=== PATIENT | male | born 1990 | race Caucasian/White ===

== ENCOUNTER 2021-04-19 09:38 | Emergency (ER) | payer SELFPAY ==
[~2021-04-19] VITALS: Ht 182.9 cm; Wt 93.9 kg
[2021-04-19] MEDS ORDERED: ONDANSETRON 2MG/ML, 2ML ONE (10:14)
[2021-04-19] MEDS ORDERED: MORPHINE SULFATE 4 MG/ML, 1ML ONE (10:14)
[2021-04-19] MEDS ORDERED: ONDANSETRON 2MG/ML, 2ML IVPush ONE (10:30)
[2021-04-19] MEDS ORDERED: MORPHINE SULFATE 4 MG/ML, 1ML IVPush PRN (10:30)
[2021-04-19] MEDS ORDERED: SODIUM CHLORIDE 0.9% 1,000ML IVBOLUS ONE (10:30)
--- NOTE | 2021-04-19 10:37 | NUR ---
PT W LEFT FLANK PAIN SINCE LAST NIGHT, WRAPS TO ABD. NAUSEA/VOMITING. NO DYSURIA/HEMATURIA. HX OF KIDNEY STONE. PIV/LABS/MEDS, PLAN CT. AWARE OF NEED FOR UA, CANNOT VOID RN. CALL [facility].
[2021-04-19 10:49] LABS: BASOPHILS % (AUTO) 1 % (0-1); EOSINOPHILS % (AUTO) 0 % (1-7); LYMPHOCYTES % (AUTO) 6 % (22-44); MEAN CORPUSCULAR HEMOGLOBIN 29.9 pg (27.5-34.5); MEAN CORPUSCULAR HGB CONC 34.2 g/dL (33.2-36.2); MEAN PLATELET VOLUME 8.6 fL (7.4-10.4); MONOCYTES % (AUTO) 5 % (2-9); NEUTROPHILS % (AUTO) 88 % (42-75); PLATELET COUNT 300 x10^3/uL (130-400); RED BLOOD COUNT 4.99 x10^6/uL (4.38-5.82); RED CELL DISTRIBUTION WIDTH 13.9 % (9.4-14.8)
[2021-04-19] MEDS ORDERED: KETOROLAC 30 MG/1 ML ONE (10:51)
[2021-04-19 11:00] LABS: ALBUMIN 4.1 g/dL (3.4-5.0); ANION GAP 7 mmol/L (5-15); CALCIUM 9.4 mg/dL (8.5-10.1); CHLORIDE 110 mmol/L (98-107); CREATININE 1.25 mg/dL (0.7-1.3)
[2021-04-19] MEDS ORDERED: KETOROLAC 30 MG/1 ML IVPush ONE (11:00)
[2021-04-19 12:18] LABS: MICROSCOPIC INDICATED
[2021-04-19 13:05] VITALS: BP 138/70
== END 2021-04-19 13:07 | disposition home or self-care (01) ==
LOC: ED 10:03
DX: N13.2 Hydronephrosis with renal and ureteral calculous obstruction (principal); R11.2 Nausea with vomiting, unspecified
CPT/HCPCS: 36415; 74176; 80048; 81001; 82040; 85025; 96361; 96374; 96375; 99284; J1885; J2270; J2405; J7030